=== PATIENT | female | born 1955 | race American Indian/Alaskan Native ===

== ENCOUNTER 2018-09-29 15:56 | Inpatient (IN) | payer BC ==
--- NOTE | 2018-09-29 16:09 | Emergency Department Report ---
Blank Doc - Documentation Documentation: This is a 62-year-old female that presents with chest pain and SOB. Also has cough and headache. This initial assessment/diagnostic orders/clinical plan/treatment(s) is/are subject to change based on patient's health status, clinical progression and re- assessment by fellow clinical providers in the ED. Further treatment and workup at subsequent clinical providers discretion. Patient/guardians urged not to elope from the ED as their condition may be serious if not clinically assessed and managed. Initial orders include: 1- Patient sent to MAIN ED for further evaluation and treatment 2- labs 3- EKG 4- CXR
[2018-09-29 16:49] LABS: Basophils % (Auto) 0.7 % (0.0-1.8); Eosinophils # (Auto) 0.1 K/mm3 (0.0-0.4); Eosinophils % (Auto) 0.7 % (0.0-4.3); Hematocrit 33.5 % (30.3-42.9); Hemoglobin 10.9 gm/dl (10.1-14.3); Lymphocytes # (Auto) 1.9 K/mm3 (1.2-5.4); Lymphocytes % (Auto) 26.9 % (13.4-35.0); Mean Corpuscular HGB Conc 33 % (30-34); Mean Corpuscular Volume 76 fl (79-97); Monocytes # (Auto) 0.5 K/mm3 (0.0-0.8); Monocytes % (Auto) 6.2 % (0.0-7.3); Platelet Count 358 K/mm3 (140-440); Red Blood Count 4.38 M/mm3 (3.65-5.03); Red Cell Distribution Width 13.8 % (13.2-15.2)
[2018-09-29 16:59] LABS: INR 0.87 (0.87-1.13)
[2018-09-29 17:00] LABS: Partial Thromboplastin Time 29.7 Sec. (24.2-36.6)
[2018-09-29 17:05] LABS: Alanine Aminotransferase 10 units/L (7-56); Albumin 4.1 g/dL (3.9-5); BUN/Creatinine Ratio 11; Blood Urea Nitrogen 8 mg/dL (7-17); Calcium 9.1 mg/dL (8.4-10.2); Hemolysis Index 9
--- NOTE | 2018-09-29 17:31 | Emergency Department Report ---
HPI - General Chief Complaint: Headache Time Seen by Provider: 09/29/18 16:10 - HPI HPI: Room 22 The patient is a 62-year-old female presenting with a chief complaint of dizziness and shortness of breath. The patient states yesterday she developed symptoms which include dizziness and weakness shortness of breath and a productive cough. Patient states her cough has been productive of brown sputum. The patient states yesterday she also developed a constant substernal chest pressure with her shortness of breath. Patient admits to nausea/vomiting and diaphoresis. Patient denies rhinorrhea. The patient states she's had tingling in both of her legs since yesterday as well. Patient admits to a fever of 102F at home. Location: [See above] Duration: [See above] Quality: [See above] Severity: [See above] Modifying factors: [see above] Context: [see above] Mode of transportation: [not driving] ED Past Medical Hx - Past Medical History Additional medical history: DVT, Pneumonia - Surgical History Additional Surgical History: tonsilectomy - Family History Family history: no significant - Social History Smoking Status: Never Smoker Substance Use Type: None (denies illicit drug use) - Medications Home Medications: Home Medications Medication Instructions Recorded Confirmed Last Taken Type Aspirin [Aspirin BABY CHEW TAB] 81 mg PO DAILY 09/29/18 09/29/18 09/29/18 History ED Review of Systems ROS: Stated complaint: COUGH/CHEST PAIN Other details as noted in HPI Constitutional: diaphoresis, fever Eyes: denies: eye pain ENT: denies: throat pain Respiratory: shortness of breath Cardiovascular: chest pain Endocrine: no symptoms reported Gastrointestinal: nausea, vomiting Genitourinary: denies: dysuria Musculoskeletal: myalgia Neurological: other (dizziness) Physical Exam - Physical Exam Vital Signs: Vital Signs 09/29/18 16:08 Temperature 98.4 F Pulse Rate 108 H Respiratory 16 Rate Blood Pressure 138/80 O2 Sat by Pulse 98 Oximetry Physical Exam: GENERAL: The patient is well-developed well-nourished female lying on stretcher not appearing to be in acute distress. [] HEENT: Normocephalic. Atraumatic. Extraocular motions are intact. Patient has moist mucous membranes. NECK: Supple. Trachea midline CHEST/LUNGS: Clear to auscultation. There is no respiratory distress noted. HEART/CARDIOVASCULAR: Regular. There is no tachycardia. There is no gallop rub or murmur. ABDOMEN: Abdomen is soft, nontender. Patient has normal bowel sounds. There is no abdominal distention. SKIN: There is no rash. There is no edema. There is no diaphoresis. NEURO: The patient is awake, alert, and orienCranial nerves II through XII MUSCULOSKELETAL: There is no evidence of acute injury. ED Course Vital Signs 09/29/18 16:08 Temperature 98.4 F Pulse Rate 108 H Respiratory 16 Rate Blood Pressure 138/80 O2 Sat by Pulse 98 Oximetry ED Medical Decision Making - Lab Data Result diagrams: 09/30/18 07:29 09/30/18 07:29 Laboratory Tests 09/29/18 09/29/18 09/29/18 16:33 16:33 16:33 WBC 7.2 RBC 4.38 Hgb 10.9 Hct 33.5 MCV 76 L MCH 25 L MCHC 33 RDW 13.8 Plt Count 358 Lymph % (Auto) 26.9 [place] % (Auto) 6.2 Eos % (Auto) 0.7 Baso % (Auto) 0.7 Lymph # 1.9 [place] # 0.5 Eos # 0.1 Baso # 0.0 Seg Neutrophils % 65.5 Seg Neutrophils # 4.7 PT 12.4 INR 0.87 APTT 29.7 D-Dimer Sodium 141 Potassium 3.7 Chloride 104.3 Carbon Dioxide 25 Anion Gap 15 BUN 8 Creatinine 0.7 Estimated GFR > 60 BUN/Creatinine Ratio 11 Glucose 85 Hemoglobin A1c Calcium 9.1 Total Bilirubin 0.20 AST 19 ALT 10 Alkaline Phosphatase 99 Troponin T < 0.010 Total Protein 8.0 Albumin 4.1 Albumin/Globulin Ratio 1.1 Triglycerides Cholesterol LDL Cholesterol Direct HDL Cholesterol Cholesterol/HDL Ratio 09/29/18 09/29/18 09/29/18 16:45 19:31 19:31 WBC RBC Hgb Hct MCV MCH MCHC RDW Plt Count Lymph % (Auto) [place] % (Auto) Eos % (Auto) Baso % (Auto) Lymph # [place] # Eos # Baso # Seg Neutrophils % Seg Neutrophils # PT INR APTT D-Dimer 388.83 H Sodium Potassium Chloride Carbon Dioxide Anion Gap BUN Creatinine Estimated GFR BUN/Creatinine Ratio Glucose Hemoglobin A1c 6.3 H Calcium Total Bilirubin AST ALT Alkaline Phosphatase Troponin T Total Protein Albumin Albumin/Globulin Ratio Triglycerides 90 Cholesterol 265 H LDL Cholesterol Direct 200 H HDL Cholesterol 69 H Cholesterol/HDL Ratio 3.84 09/29/18 09/30/18 09/30/18 19:39 07:29 07:29 WBC 7.4 RBC 4.59 Hgb 11.4 Hct 35.4 MCV 77 L MCH 25 L MCHC 32 RDW 14.1 Plt Count 341 Lymph % (Auto) 10.5 L [place] % (Auto) 1.6 Eos % (Auto) 0.1 Baso % (Auto) 0.4 Lymph # 0.8 L [place] # 0.1 Eos # 0.0 Baso # 0.0 Seg Neutrophils % 87.4 H Seg Neutrophils # 6.4 PT INR APTT D-Dimer Sodium 140 Potassium 4.1 Chloride 102.9 Carbon Dioxide 24 Anion Gap 17 BUN 10 Creatinine 0.8 Estimated GFR > 60 BUN/Creatinine Ratio 13 Glucose 151 H Hemoglobin A1c Calcium 9.2 Total Bilirubin AST ALT Alkaline Phosphatase Troponin T < 0.010 Total Protein Albumin Albumin/Globulin Ratio Triglycerides Cholesterol LDL Cholesterol Direct HDL Cholesterol Cholesterol/HDL Ratio - EKG Data -: EKG Interpreted by Nc EKG shows normal: sinus rhythm Rate: normal - EKG Data When compared to previous EKG there are: previous EKG unavailable Interpretation: other (no ischemic changes seen) - Radiology Data Radiology results: report reviewed (CT chest), image reviewed (CT chest) [place] [address] Cat Scan Report Signed Patient: MIRANDA RIOS MR#: [id number] 9 : 1955 Acct:[id number] Age/Sex: 62 / F ADM Date: 09/29/18 Loc: ED Attending Dr: Ordering Physician: CORRINA CORDOVA MD Date of Service: 09/29/18 Procedure(s): CT angio chest Accession Number(s): [id number] cc: CORRINA CORDOVA MD PROCEDURE: CT ANGIO CHEST TECHNIQUE: Following administration of IV contrast axial helical imaging was performed through the chest with maximum intensity projection images obtained. HISTORY: chest pain, shortness of breath COMPARISONS: Chest x-ray also performed today FINDINGS: There is no evidence of infiltrate, pneumothorax or pleural fluid collection. The trachea and bronchi are patent. The heart appears to be normal size. The thoracic aorta is normal caliber and without evidence of dissection.. There is no evidence of intrathoracic adenopathy. No filling defects are demonstrated within the pulmonary arteries to suggest the presence of pulmonary artery emboli. The visualized portion of the upper abdomen is unremarkable. The bony structures are unremarkable. IMPRESSION: 1. No evidence of an acute intrathoracic process. 2. No evidence of pulmonary artery emboli. This document is electronically signed by Parish Kothari MD., Sep 29 2018 08:07:46 PM ET Transcribed By: ED Dictated By: PARISH KOTHARI MD Electronically Authenticated By: PARISH KOTHARI MD Signed Date/Time: 09/29/182009 DD/ 08 TD/TT: 09/29/181929 - Differential Diagnosis bronchitis, pneumonia, ACS, PE, costochondritis Critical care attestation.: If time is entered above; I have spent that time in minutes in the direct care of this critically ill patient, excluding procedure time. ED Disposition Clinical Impression: Shortness of breath, Chest pressure Disposition: OP ADMIT IP TO THIS HOSP Is pt being admited?: Yes Does the pt Need Aspirin: Yes Condition: Fair
[2018-09-29] MEDS ORDERED: ZOFRAN IV ONE (17:42)
[2018-09-29] MEDS ORDERED: SUBLIMAZE IV ONE (17:42)
--- NOTE | 2018-09-29 17:46 | XRay Report ---
PROCEDURE: XR CHEST ROUTINE 2V TECHNIQUE: PA and lateral chest HISTORY: Chest Pain COMPARISONS: None FINDINGS: Trachea midline. Heart size normal. Mild atherosclerotic tortuosity aorta No pneumothorax. No effusion. No acute airspace disease No acute bony abnormality IMPRESSION: No acute pulmonary disease.. This document is electronically signed by John Perkins MD., Sep 29 2018 05:44:03 PM ET
--- NOTE | 2018-09-29 20:10 | Cat Scan Report ---
PROCEDURE: CT ANGIO CHEST TECHNIQUE: Following administration of IV contrast axial helical imaging was performed through the c hest with maximum intensity projection images obtained. HISTORY: chest pain, shortness of breath COMPARISONS: Chest x-ray also performed today FINDINGS: There is no evidence of infiltrate, pneumothorax or pleural fluid collection. The trachea and bronchi are patent. The heart appears to be normal size. The thoracic aorta is normal caliber and without evidence of dissection.. There is no evidence of intrathoracic adenopathy. No filling defects are demonstrated within the pulmonary arteries to suggest the presence of pulmonar y artery emboli. The visualized portion of the upper abdomen is unremarkable. The bony structures are unremarkable. IMPRESSION: 1. No evidence of an acute intrathoracic process. 2. No evidence of pulmonary artery emboli. This document is electronically signed by Regina Kothari MD., Sep 29 2018 08:07:46 PM ET
[2018-09-29] MEDS ORDERED: TYLENOL PO PRN (20:11)
[2018-09-29] MEDS ORDERED: MORPHINE IV PRN (20:11)
[2018-09-29] MEDS ORDERED: SODIUM CHLORIDE FLUSH SYRINGE 10 ML IV PRN ×2 (20:11)
[2018-09-29] MEDS ORDERED: ZOFRAN IV PRN (20:11)
[2018-09-29] MEDS ORDERED: NITROSTAT SL PRN (20:13)
[2018-09-29] MEDS ORDERED: APRESOLINE IV PRN (20:24)
--- NOTE | 2018-09-29 20:31 | History and Physical Report ---
<LINNEA ALEXANDER - Last Filed: 09/29/18 21:58> History of Present Illness Date of examination: 09/29/18 Date of admission: 09/29/2018 Chief complaint: Chest Pain and BLE tingling History of present illness: 62-year-old -German female with history of left lower extremity DVT ( approx 5yrs ago) currently takes aspirin 81 mg daily presents to [facility] ED with complaints of cough with brown sputum production, 10/10 chest pain accompanied with diaphoresis, nausea, and emesis 1 for the past day. Patient stated that she started feeling ill yesterday evening but felt too weak to come to the ED and decided to wait until this morning with hopes that she will feel better. Her pain continued throughout the night and so she decided to come in today. Patient states that she thought she might have had pneumonia since she's had in the past and also experienced chest pain and discolored sputum production when she had pneumonia. She describes her pain as unprovoked "pressing pain" which is relieved with pain medicine. She admits to dyspnea with activity, which is relieved by cessation of activity and rest. Also pt c/o intermittent bilateral lower extremity paresthesia. Admits diaphoresis, fever, chills, dyspnea, cough, brown sputum production and chest pain. Denies diarrhea, hemoptysis, or recent sick contact. Past History Past Medical History: DVT (left lower extremity, 5 years ago) Past Surgical History: No surgical history Social history: , lives with family Family history: no significant family history Medications and Allergies Allergies Allergy/AdvReac Type Severity Reaction Status Date / Time No Known Allergies Allergy Unverified 09/29/18 15:58 Home Medications Medication Instructions Recorded Confirmed Last Taken Type Aspirin [Aspirin BABY CHEW TAB] 81 mg PO DAILY 09/29/18 09/29/18 09/29/18 History AtorvaSTATin [Lipitor] 40 mg PO QHS #30 tablet 10/01/18 Unknown Rx Azithromycin [Zithromax TAB] 500 mg PO QDAY #3 tablet 10/01/18 Unknown Rx Ibuprofen [Ibuprofen 400] 400 mg PO TID PRN #20 tablet 10/01/18 Unknown Rx amLODIPine [Norvasc] 5 mg PO QDAY #30 tablet 10/01/18 Unknown Rx Review of Systems Constitutional: fever, chills, sweats, no weight loss, no weight gain, no night sweats, no anorexia, no fatigue Ears, nose, mouth and throat: no nasal congestion, no nasal discharge, no epistaxis, no sore throat, no vertigo Breasts: deferred Cardiovascular: chest pain, shortness of breath, no syncope, no lightheadedness Respiratory: cough, cough with sputum (Brown colored), shortness of breath, no hemoptysis, no congestion, no wheezing Gastrointestinal: no abdominal pain, no nausea, no vomiting, no constipation, no hematemesis Genitourinary Female: no dysuria, no urinary frequency, no urgency Menstruation: postmenopausal Rectal: no incontinence, no bleeding, no itching Musculoskeletal: leg numbness/tingling (bilateral), no neck stiffness, no neck pain Integumentary: no rash, no pruritis, no redness Neurological: numbness, tingling, no head injury, no transient paralysis, no weakness, no seizures Psychiatric: no anxiety, no memory loss, no change in sleep habits, no sleep disturbances Endocrine: no cold intolerance, no heat intolerance, no polydipsia, no polyuria, no nocturia, no excessive sweating Hematologic/Lymphatic: no easy bruising, no easy bleeding Allergic/Immunologic: no allergic rhinitis, no wheezing Exam - Physical Exam Narrative exam: Physical exam General appearance: Present: No acute distress, well nourished - EENT Eyes: Present: PERRL, EOM intact ENT: hearing intact, normal dentition - Neck Neck: Present: supple, normal ROM - Respiratory Respiratory effort: Non-labored Respiratory: Clear throughout - Cardiovascular Heart rate: 67 (bpm) Rhythm: regular Heart Sounds: Present: S1 & S2. Absent: rub, click - Extremities Extremities: no ischemia, pulses intact, abnormal (trace edema to right lower extremity) - Peripheral Assessment Peripheral Pulses: within normal limits - Abdominal General gastrointestinal: soft, non-tender, normal bowel sounds - Integumentary Integumentary: Present: warm, dry - Musculoskeletal Musculoskeletal: Able to move all extremities - Psychiatric Psychiatric: cooperative - Constitutional Vitals: Temp Pulse Resp BP Pulse Ox 98.9 F 82 16 160/91 100 09/29/18 20:12 09/29/18 20:12 09/29/18 20:12 09/29/18 20:12 09/29/18 20:12 Results - Labs CBC & Chem 7: 09/29/18 16:33 09/29/18 16:33 Labs: Laboratory Last Values WBC 7.2 K/mm3 (4.5-11.0) 09/29/18 16:33 RBC 4.38 M/mm3 (3.65-5.03) 09/29/18 16:33 Hgb 10.9 gm/dl (10.1-14.3) 09/29/18 16:33 Hct 33.5 % (30.3-42.9) 09/29/18 16:33 MCV 76 fl (79-97) L 09/29/18 16:33 MCH 25 pg (28-32) L 09/29/18 16:33 MCHC 33 % (30-34) 09/29/18 16:33 RDW 13.8 % (13.2-15.2) 09/29/18 16:33 Plt Count 358 K/mm3 (140-440) 09/29/18 16:33 Lymph % (Auto) 26.9 % (13.4-35.0) 09/29/18 16:33 [place] % (Auto) 6.2 % (0.0-7.3) 09/29/18 16:33 Eos % (Auto) 0.7 % (0.0-4.3) 09/29/18 16:33 Baso % (Auto) 0.7 % (0.0-1.8) 09/29/18 16:33 Lymph # 1.9 K/mm3 (1.2-5.4) 09/29/18 16:33 [place] # 0.5 K/mm3 (0.0-0.8) 09/29/18 16:33 Eos # 0.1 K/mm3 (0.0-0.4) 09/29/18 16:33 Baso # 0.0 K/mm3 (0.0-0.1) 09/29/18 16:33 Seg Neutrophils % 65.5 % (40.0-70.0) 09/29/18 16:33 Seg Neutrophils # 4.7 K/mm3 (1.8-7.7) 09/29/18 16:33 PT 12.4 Sec. (12.2-14.9) 09/29/18 16:33 INR 0.87 (0.87-1.13) 09/29/18 16:33 APTT 29.7 Sec. (24.2-36.6) 09/29/18 16:33 D-Dimer 388.83 ng/mlDDU (0-234) H 09/29/18 16:45 Sodium 141 mmol/L (137-145) 09/29/18 16:33 Potassium 3.7 mmol/L (3.6-5.0) 09/29/18 16:33 Chloride 104.3 mmol/L (98-107) 09/29/18 16:33 Carbon Dioxide 25 mmol/L (22-30) 09/29/18 16:33 Anion Gap 15 mmol/L 09/29/18 16:33 BUN 8 mg/dL (7-17) 09/29/18 16:33 Creatinine 0.7 mg/dL (0.7-1.2) 09/29/18 16:33 Estimated GFR > 60 ml/min 09/29/18 16:33 BUN/Creatinine Ratio 11 % 09/29/18 16:33 Glucose 85 mg/dL (65-100) 09/29/18 16:33 Calcium 9.1 mg/dL (8.4-10.2) 09/29/18 16:33 Total Bilirubin 0.20 mg/dL (0.1-1.2) 09/29/18 16:33 AST 19 units/L (5-40) 09/29/18 16:33 ALT 10 units/L (7-56) 09/29/18 16:33 Alkaline Phosphatase 99 units/L (35-129) 09/29/18 16:33 Troponin T < 0.010 ng/mL (0.00-0.029) 09/29/18 19:39 Total Protein 8.0 g/dL (6.3-8.2) 09/29/18 16:33 Albumin 4.1 g/dL (3.9-5) 09/29/18 16:33 Albumin/Globulin Ratio 1.1 % 09/29/18 16:33 - Imaging and Cardiology EKG: image reviewed (sinus rhythm at 87 bpm, prolonged WA interval) Chest x-ray: report reviewed, image reviewed (No acute pulmonary disease) CT scan - chest: report reviewed, image reviewed (No evidence of an acute intrathoracic process. No evidence of pulmonary artery emboli. ) Assessment and Plan Assessment and plan: 62-year-old -German female with history of left lower extremity DVT ( approx 5yrs ago) currently takes aspirin 81 mg daily presents to [facility] ED with complaints of cough with brown sputum production, 10/10 chest pain accompanied with diaphoresis, nausea, and emesis 1 for the past day. She admits to dyspnea with activity, which is relieved by cessation of activity and rest. Also pt c/o intermittent bilateral lower extremity paresthesia. Patient will be admitted under OBS to telemetry for further evaluation. Troponin negative 1, slight elevation in d-dimer at 388.83. Will order echocardiogram and consult cardiology. Given patient's history of DVT Doppler of bilateral lower extremity will be ordered. Acute chest pain Suspicion of ACS Bronchitis Hypertension HLD Prediabetes- hgbA1c 6.3 History of DVT History of insomnia Plan: Echo pending Repeat troponin- pending Bilateral lower extremity Doppler pending Monitor BP Start Norvasc 5 mg Start Lipitor 40 mg Start Azithromycin 500mg x3 days Prednisone 40mg daily Albuterol prn Temazepam qhs Pain management A.m. labs Outpatient f/u with PCP to monitor HgbA1c DVT PPX on Lovenox and SCDs Advance Directives: No VTE prophylaxis?: Chemical, Mechanical Plan of care discussed with patient/family: Yes <GARLAND ROMERO - Last Filed: 10/13/18 01:12> History of Present Illness Date of admission: 09/29/18 20:11 Medications and Allergies Active Meds: Active Medications Acetaminophen (Tylenol) 650 mg PO Q4H PRN PRN Reason: Pain MILD(1-3)/Fever >100.5/AVILA Albuterol (Proventil) 2.5 mg IH Q4HRT PRN PRN Reason: Shortness Of Breath Amlodipine Besylate (Norvasc) 5 mg PO QDAY GEORGE Aspirin (Baby Aspirin) 81 mg PO QDAY GEORGE Atorvastatin Calcium (Lipitor) 40 mg PO QHS GEORGE Azithromycin (Zithromax) 500 mg PO QDAY GEORGE Stop: 10/01/18 23:59 Docusate Sodium (Colace) 100 mg PO BID GEORGE Enoxaparin Sodium (Lovenox) 40 mg SUB-Q QDAY GEORGE Hydralazine HCl (Apresoline) 10 mg IV Q4H PRN PRN Reason: Blood Pressure Morphine Sulfate (Morphine) 2 mg IV Q4H PRN PRN Reason: Pain, Moderate (4-6) Stop: 09/30/18 23:59 Nitroglycerin (Nitrostat) 0.4 mg SL Q5M PRN PRN Reason: Chest Pain Ondansetron HCl (Zofran) 4 mg IV Q8H PRN PRN Reason: Nausea And Vomiting Prednisone (Deltasone) 40 mg PO QDAY GEORGE Sodium Chloride (Sodium Chloride Flush Syringe 10 Ml) 10 ml IV BID GEORGE Sodium Chloride (Sodium Chloride Flush Syringe 10 Ml) 10 ml IV PRN PRN PRN Reason: LINE FLUSH Temazepam (Restoril) 15 mg PO QHS GEORGE Tramadol HCl (Ultram) 50 mg PO Q6H PRN PRN Reason: Pain, Moderate (4-6) Exam - Constitutional Vitals: Temp Pulse Resp BP Pulse Ox 97.8 F 79 16 145/90 100 09/29/18 21:32 09/29/18 21:32 09/29/18 21:32 09/29/18 21:32 09/29/18 21:32 Results - Labs CBC & Chem 7: 09/30/18 07:29 09/30/18 07:29 Labs: Laboratory Last Values WBC 7.2 K/mm3 (4.5-11.0) 09/29/18 16:33 RBC 4.38 M/mm3 (3.65-5.03) 09/29/18 16:33 Hgb 10.9 gm/dl (10.1-14.3) 09/29/18 16:33 Hct 33.5 % (30.3-42.9) 09/29/18 16:33 MCV 76 fl (79-97) L 09/29/18 16:33 MCH 25 pg (28-32) L 09/29/18 16:33 MCHC 33 % (30-34) 09/29/18 16:33 RDW 13.8 % (13.2-15.2) 09/29/18 16:33 Plt Count 358 K/mm3 (140-440) 09/29/18 16:33 Lymph % (Auto) 26.9 % (13.4-35.0) 09/29/18 16:33 [place] % (Auto) 6.2 % (0.0-7.3) 09/29/18 16:33 Eos % (Auto) 0.7 % (0.0-4.3) 09/29/18 16:33 Baso % (Auto) 0.7 % (0.0-1.8) 09/29/18 16:33 Lymph # 1.9 K/mm3 (1.2-5.4) 09/29/18 16:33 [place] # 0.5 K/mm3 (0.0-0.8) 09/29/18 16:33 Eos # 0.1 K/mm3 (0.0-0.4) 09/29/18 16:33 Baso # 0.0 K/mm3 (0.0-0.1) 09/29/18 16:33 Seg Neutrophils % 65.5 % (40.0-70.0) 09/29/18 16:33 Seg Neutrophils # 4.7 K/mm3 (1.8-7.7) 09/29/18 16:33 PT 12.4 Sec. (12.2-14.9) 09/29/18 16:33 INR 0.87 (0.87-1.13) 09/29/18 16:33 APTT 29.7 Sec. (24.2-36.6) 09/29/18 16:33 D-Dimer 388.83 ng/mlDDU (0-234) H 09/29/18 16:45 Sodium 141 mmol/L (137-145) 09/29/18 16:33 Potassium 3.7 mmol/L (3.6-5.0) 09/29/18 16:33 Chloride 104.3 mmol/L (98-107) 09/29/18 16:33 Carbon Dioxide 25 mmol/L (22-30) 09/29/18 16:33 Anion Gap 15 mmol/L 09/29/18 16:33 BUN 8 mg/dL (7-17) 09/29/18 16:33 Creatinine 0.7 mg/dL (0.7-1.2) 09/29/18 16:33 Estimated GFR > 60 ml/min 09/29/18 16:33 BUN/Creatinine Ratio 11 % 09/29/18 16:33 Glucose 85 mg/dL (65-100) 09/29/18 16:33 Hemoglobin A1c 6.3 % (4-6) H 09/29/18 19:31 Calcium 9.1 mg/dL (8.4-10.2) 09/29/18 16:33 Total Bilirubin 0.20 mg/dL (0.1-1.2) 09/29/18 16:33 AST 19 units/L (5-40) 09/29/18 16:33 ALT 10 units/L (7-56) 09/29/18 16:33 Alkaline Phosphatase 99 units/L (35-129) 09/29/18 16:33 Troponin T < 0.010 ng/mL (0.00-0.029) 09/29/18 19:39 Total Protein 8.0 g/dL (6.3-8.2) 09/29/18 16:33 Albumin 4.1 g/dL (3.9-5) 09/29/18 16:33 Albumin/Globulin Ratio 1.1 % 09/29/18 16:33 Triglycerides 90 mg/dL (2-149) 09/29/18 19:31 Cholesterol 265 mg/dL (50-199) H 09/29/18 19:31 LDL Cholesterol Direct 200 mg/dL (50-130) H 09/29/18 19:31 HDL Cholesterol 69 mg/dL (40-59) H 09/29/18 19:31 Cholesterol/HDL Ratio 3.84 % 09/29/18 19:31 Assessment and Plan Assessment and plan: Patient seen and examined with CONSERVATION SPECIALIST. 62 year old woman with no medical problem comes to emergency room complaining of cough productive of brown yellowish phlegm, shortness of breath. Complains of chest discomfort in the anterior chest only with cough which she described as a pressing sensation. Symptoms are suggestive of acute bronchitis, less likely ACS. Agree with plan as stated above. Monitor elevated blood pressure, agree with Norvasc
[2018-09-29 20:48] LABS: Chol/HDL Ratio 3.84 %
[2018-09-29] MEDS ORDERED: PROVENTIL IH PRN (22:09)
[2018-09-29] MEDS ORDERED: DELTASONE PO ONE (22:23)
[2018-09-29] MEDS: LOVENOX SUB-Q SCH (22:35)
[2018-09-29] MEDS: NORVASC PO SCH (22:35)
[2018-09-29] MEDS: ZITHROMAX PO SCH (22:36)
[2018-09-29] MEDS: SODIUM CHLORIDE FLUSH SYRINGE 10 ML IV SCH (22:36)
[2018-09-29] MEDS: RESTORIL PO SCH (23:04)
[2018-09-29] MEDS: COLACE PO SCH (23:05)
[2018-09-30 07:25] LABS: BUN/Creatinine Ratio 13; Basophils % (Auto) 0.4 % (0.0-1.8); Blood Urea Nitrogen 10 mg/dL (7-17); Calcium 9.2 mg/dL (8.4-10.2); Eosinophils % (Auto) 0.1 % (0.0-4.3); Hematocrit 35.4 % (30.3-42.9); Hemoglobin 11.4 gm/dl (10.1-14.3); Hemolysis Index 0; Lymphocytes # (Auto) 0.8 K/mm3 (1.2-5.4); Lymphocytes % (Auto) 10.5 % (13.4-35.0); Mean Corpuscular HGB Conc 32 % (30-34); Mean Corpuscular Volume 77 fl (79-97); Monocytes # (Auto) 0.1 K/mm3 (0.0-0.8); Monocytes % (Auto) 1.6 % (0.0-7.3); Platelet Count 341 K/mm3 (140-440); Red Blood Count 4.59 M/mm3 (3.65-5.03); Red Cell Distribution Width 14.1 % (13.2-15.2)
--- NOTE | 2018-09-30 10:52 | Progress Note ---
Assessment and Plan Assessment and plan: Chest pain stress test today Aspirin daily Cardiology evaluation done Acute bronchitis started on Prednisone hyperlipidemia start Lipitor Full code status History Interval history: Chest pain Hospitalist Physical - Physical exam Narrative exam: Gen: Not in acute distress, lying in bed HEENT: Normocephalic, atraumatic Neck: supple, no JVD Heart: S1 and S2 reg, no murmurs, rubs or gallop Lungs: Clear to auscultation, no wheezing Abd: soft, non tender, non distended, normal BS Ext: No edema, no clubbing, no cyanosis, Neuro: AAO x 3, moves all ext - Constitutional Vitals: Temp Pulse Resp BP Pulse Ox 97.9 F 88 16 112/63 95 09/30/18 08:49 09/30/18 08:49 09/30/18 08:49 09/30/18 08:49 09/30/18 08:49 Results - Labs CBC & Chem 7: 09/30/18 07:29 09/30/18 07:29 Labs: Laboratory Last Values WBC 7.4 K/mm3 (4.5-11.0) 09/30/18 07:29 RBC 4.59 M/mm3 (3.65-5.03) 09/30/18 07:29 Hgb 11.4 gm/dl (10.1-14.3) 09/30/18 07:29 Hct 35.4 % (30.3-42.9) 09/30/18 07:29 MCV 77 fl (79-97) L 09/30/18 07:29 MCH 25 pg (28-32) L 09/30/18 07:29 MCHC 32 % (30-34) 09/30/18 07:29 RDW 14.1 % (13.2-15.2) 09/30/18 07:29 Plt Count 341 K/mm3 (140-440) 09/30/18 07:29 Lymph % (Auto) 10.5 % (13.4-35.0) L 09/30/18 07:29 Clark % (Auto) 1.6 % (0.0-7.3) 09/30/18 07:29 Eos % (Auto) 0.1 % (0.0-4.3) 09/30/18 07:29 Baso % (Auto) 0.4 % (0.0-1.8) 09/30/18 07:29 Lymph # 0.8 K/mm3 (1.2-5.4) L 09/30/18 07:29 Clark # 0.1 K/mm3 (0.0-0.8) 09/30/18 07:29 Eos # 0.0 K/mm3 (0.0-0.4) 09/30/18 07: Baso # 0.0 K/mm3 (0.0-0.1) 09/30/18 07:29 Seg Neutrophils % 87.4 % (40.0-70.0) H 09/30/18 07:29 Seg Neutrophils # 6.4 K/mm3 (1.8-7.7) 09/30/18 07:29 PT 12.4 Sec. (12.2-14.9) 09/29/18 16:33 INR 0.87 (0.87-1.13) 09/29/18 16:33 APTT 29.7 Sec. (24.2-36.6) 09/29/18 16:33 388.83 ng/mlDDU (0-234) H 09/29/18 16:45 Sodium 140 mmol/L (137-145) 09/30/18 07:29 Potassium 4.1 mmol/L (3.6-5.0) 09/30/18 07:29 Chloride 102.9 mmol/L (98-107) 09/30/18 07:29 Carbon Dioxide 24 mmol/L (22-30) 09/30/18 07:29 17 mmol/L 09/30/18 07:29 BUN 10 mg/dL (7-17) 09/30/18 07:29 0.8 mg/dL (0.7-1.2) 09/30/18 07:29 Estimated GFR > 60 ml/min 09/30/18 07:29 13 % 09/30/18 07:29 Glucose 151 mg/dL (65-100) H 09/30/18 07:29 6.3 % (4-6) H 09/29/18 19:31 Calcium 9.2 mg/dL (8.4-10.2) 09/30/18 07:29 0.20 mg/dL (0.1-1.2) 09/29/18 16:33 AST 19 units/L (5-40) 09/29/18 16:33 ALT 10 units/L (7-56) 09/29/18 16:33 99 units/L (35-129) 09/29/18 16:33 < 0.010 ng/mL (0.00-0.029) 09/29/18 19:39 8.0 g/dL (6.3-8.2) 09/29/18 16:33 4.1 g/dL (3.9-5) 09/29/18 16:33 1.1 % 09/29/18 16:33 Triglycerides 90 mg/dL (2-149) 09/29/18 19:31 Cholesterol 265 mg/dL (50-199) H 09/29/18 19:31 200 mg/dL (50-130) H 09/29/18 19:31 69 mg/dL (40-59) H 09/29/18 19:31 3.84 % 09/29/18 19:31 Active Medications - Current Medications Current Medications: Generic Name Dose Route Start Last Admin Trade Name Freq PRN Reason Stop Dose Admin Acetaminophen 650 mg 09/29/18 20:11 Tylenol PO Q4H PRN Pain MILD(1-3)/Fever >100.5/AVILA Albuterol 2.5 mg 09/29/18 22:09 Proventil IH Q4HRT PRN Shortness Of Breath Amlodipine Besylate 5 mg 09/29/18 22:00 09/29/18 22:35 Norvasc PO 5 mg QDAY GEORGE Administration Aspirin 81 mg 09/30/18 10:00 Baby Aspirin PO QDAY GEORGE Atorvastatin Calcium 40 mg 09/29/18 22:00 09/29/18 22:36 Lipitor PO 40 mg QHS GEORGE Administration Azithromycin 500 mg 09/29/18 22:00 09/29/18 22:36 Zithromax PO 10/01/18 23:59 500 mg QDAY GEORGE Administration Docusate Sodium 100 mg 09/29/18 22:00 09/29/18 23:05 Colace PO Not Given BID GEORGE Enoxaparin Sodium 40 mg 09/29/18 21:00 09/29/18 22:35 Lovenox SUB-Q 40 mg QDAY GEORGE Administration Hydralazine HCl 10 mg 09/29/18 20:24 Apresoline IV Q4H PRN Blood Pressure Morphine Sulfate 2 mg 09/29/18 20:11 Morphine IV 09/30/18 23:59 Q4H PRN Pain, Moderate (4-6) Nitroglycerin 0.4 mg 09/29/18 20:13 Nitrostat SL Q5M PRN Chest Pain Ondansetron HCl 4 mg 09/29/18 20:11 Zofran IV Q8H PRN Nausea And Vomiting Prednisone 40 mg 09/30/18 10:00 Deltasone PO QDAY GEORGE Sodium Chloride 10 ml 09/29/18 22:00 09/29/18 22:36 Sodium Chloride Flush Syringe 10 Ml IV Not Given BID GEORGE Sodium Chloride 10 ml 09/29/18 20:11 Sodium Chloride Flush Syringe 10 Ml IV PRN PRN LINE FLUSH Temazepam 15 mg 09/29/18 22:00 09/29/18 23:04 Restoril PO 15 mg QHS GEORGE Administration Tramadol HCl 50 mg 09/29/18 20:13 Ultram PO Q6H PRN Pain, Moderate (4-6)
--- NOTE | 2018-09-30 11:09 | Consultation ---
History of Present Illness Consult date: 09/30/18 Consult reason: chest pain History of present illness: Patient is a 62 y/o female with a past medical history of an unprovoked left lower extremity DVT five years ago (anticoagulated with warfarin, now on ASA) and pneumonia who presented to the ED with a productive cough and chest pain x1 week. She reports that the chest pain occurs throughout her upper chest and is worse with coughing, movement and palpation. She rated is as 10/10. She also endorses a cough productive of thick, yellow sputum and describes her symptoms as similar to what she experienced when she last had pneumonia five y/a. A CTA was negative for PE and a CXR showed NAF. Troponins were negative x2, and EKG showed SR with no ST elevation. Past History Past Medical History: DVT (left lower extremity, 5 years ago) Past Surgical History: No surgical history Social history: , lives with family Family history: hypertension, other (mother and father had "heart problems.") Medications and Allergies Allergies Allergy/AdvReac Type Severity Reaction Status Date / Time No Known Allergies Allergy Unverified 09/29/18 15:58 Home Medications Medication Instructions Recorded Confirmed Last Taken Type Aspirin [Aspirin BABY CHEW TAB] 81 mg PO DAILY 09/29/18 09/29/18 09/29/18 History Active Meds: Active Medications Acetaminophen (Tylenol) 650 mg PO Q4H PRN PRN Reason: Pain MILD(1-3)/Fever >100.5/AVILA Albuterol (Proventil) 2.5 mg IH Q4HRT PRN PRN Reason: Shortness Of Breath Amlodipine Besylate (Norvasc) 5 mg PO QDAY [facility] Last Admin: 09/29/18 22:35 Dose: 5 mg Documented by: Aspirin (Baby Aspirin) 81 mg PO QDAY [facility] Atorvastatin Calcium (Lipitor) 40 mg PO QHS [facility] Last Admin: 09/29/18 22:36 Dose: 40 mg Documented by: Azithromycin (Zithromax) 500 mg PO QDAY [facility] Stop: 10/01/18 23:59 Last Admin: 09/29/18 22:36 Dose: 500 mg Documented by: Docusate Sodium (Colace) 100 mg PO BID [facility] Last Admin: 09/29/18 23:05 Dose: Not Given Documented by: Enoxaparin Sodium (Lovenox) 40 mg SUB-Q QDAY [facility] Last Admin: 09/29/18 22:35 Dose: 40 mg Documented by: Hydralazine HCl (Apresoline) 10 mg IV Q4H PRN PRN Reason: Blood Pressure Morphine Sulfate (Morphine) 2 mg IV Q4H PRN PRN Reason: Pain, Moderate (4-6) Stop: 09/30/18 23:59 Nitroglycerin (Nitrostat) 0.4 mg SL Q5M PRN PRN Reason: Chest Pain Ondansetron HCl (Zofran) 4 mg IV Q8H PRN PRN Reason: Nausea And Vomiting Prednisone (Deltasone) 40 mg PO QDAY [facility] Sodium Chloride (Sodium Chloride Flush Syringe 10 Ml) 10 ml IV BID [facility] Last Admin: 09/29/18 22:36 Dose: Not Given Documented by: Sodium Chloride (Sodium Chloride Flush Syringe 10 Ml) 10 ml IV PRN PRN PRN Reason: LINE FLUSH Temazepam (Restoril) 15 mg PO QHS [facility] Last Admin: 09/29/18 23:04 Dose: 15 mg Documented by: Tramadol HCl (Ultram) 50 mg PO Q6H PRN PRN Reason: Pain, Moderate (4-6) Review of Systems Cardiovascular: chest pain, shortness of breath Physical Examination Last Vital Signs Temp 97.9 F 09/30/18 08:49 Pulse 88 09/30/18 08:49 Resp 16 09/30/18 08:49 BP 112/63 09/30/18 08:49 Pulse Ox 95 09/30/18 08:49 General appearance: no acute distress Cardiac: Positive: Reg Rate and Rhythm Lungs: Positive: Normal Exam Skin: Positive: Clear Extremities: Present: normal Results 09/30/18 07:29 09/30/18 07:29 Cardiac Enzymes 09/29/18 Range/Units 16:33 AST 19 (5-40) units/L Coagulation 09/29/18 Range/Units 16:33 PT 12.4 (12.2-14.9) Sec. INR 0.87 (0.87-1.13) APTT 29.7 (24.2-36.6) Sec. Lipids 09/29/18 Range/Units 19:31 Triglycerides 90 (2-149) mg/dL Cholesterol 265 H (50-199) mg/dL HDL Cholesterol 69 H (40-59) mg/dL Cholesterol/HDL Ratio 3.84 % CBC 09/29/18 09/30/18 Range/Units 16:33 07:29 WBC 7.2 7.4 (4.5-11.0) K/mm3 RBC 4.38 4.59 (3.65-5.03) M/mm3 Hgb 10.9 11.4 (10.1-14.3) gm/dl Hct 33.5 35.4 (30.3-42.9) % Plt Count 358 341 (140-440) K/mm3 Lymph # 1.9 0.8 L (1.2-5.4) K/mm3 Emmet # 0.5 0.1 (0.0-0.8) K/mm3 Eos # 0.1 0.0 (0.0-0.4) K/mm3 Baso # 0.0 0.0 (0.0-0.1) K/mm3 Comprehensive Metabolic Panel 09/29/18 09/30/18 Range/Units 16:33 07:29 Sodium 141 140 (137-145) mmol/L Potassium 3.7 4.1 (3.6-5.0) mmol/L Chloride 104.3 102.9 (98-107) mmol/L Carbon Dioxide 25 24 (22-30) mmol/L BUN 8 10 (7-17) mg/dL Creatinine 0.7 0.8 (0.7-1.2) mg/dL Glucose 85 151 H (65-100) mg/dL Calcium 9.1 9.2 (8.4-10.2) mg/dL AST 19 (5-40) units/L ALT 10 (7-56) units/L Alkaline Phosphatase 99 (35-129) units/L Total Protein 8.0 (6.3-8.2) g/dL Albumin 4.1 (3.9-5) g/dL - Imaging and Cardiology EKG: report reviewed - EKG Interpretation EKG shows: sinus rhythm EKG interpretations - Telemetry EKG Rhythm: Sinus Rhythm Assessment and Plan Patient is a 62 y/o female who presented to the ED with atypical chest pain. She has no known cardiac history. We will obtain an echocardiogram and perform a Lexiscan stress test. Further recommendations pending results. Patient was seen in conjunction with Dr. Darnell Ortiz, who agrees with assessment and plan. - Patient Problems (1) Atypical chest pain Current Visit: Yes Status: Acute (2) Shortness of breath Current Visit: Yes Status: Acute (3) Productive cough Current Visit: Yes Status: Acute (4) DVT (deep venous thrombosis) Current Visit: No Status: Resolved
[2018-09-30] MEDS ORDERED: LEXISCAN IV ONE ×2 (11:28→12:00)
[2018-09-30] MEDS: DELTASONE PO SCH (13:59)
[2018-09-30] MEDS: ZITHROMAX PO SCH (14:00)
[2018-09-30] MEDS: BABY ASPIRIN PO SCH (14:00)
[2018-09-30] MEDS: NORVASC PO SCH (14:00)
[2018-09-30] MEDS: LOVENOX SUB-Q SCH (14:00)
[2018-09-30] MEDS: SODIUM CHLORIDE FLUSH SYRINGE 10 ML IV SCH ×2 (14:01→21:42)
[2018-09-30] MEDS: COLACE PO SCH ×2 (14:03→21:42)
[2018-09-30] MEDS: ULTRAM PO PRN ×2 (14:15→21:41)
[2018-09-30] MEDS: NITRO-BID 2% TP SCH (18:19)
[2018-09-30] MEDS: RESTORIL PO SCH (21:41)
[2018-09-30] MEDS ORDERED: RESTORIL PO SCH (22:00)
[2018-10-01 04:58] VITALS: BP 113/55
[2018-10-01] MEDS: NITRO-BID 2% TP SCH (07:04)
[2018-10-01] MEDS: LOVENOX SUB-Q SCH (10:30)
[2018-10-01] MEDS: NORVASC PO SCH (10:30)
[2018-10-01] MEDS: BABY ASPIRIN PO SCH (10:30)
[2018-10-01] MEDS: COLACE PO SCH (10:30)
[2018-10-01] MEDS: DELTASONE PO SCH (10:30)
[2018-10-01] MEDS: ZITHROMAX PO SCH (10:30)
[2018-10-01] MEDS: SODIUM CHLORIDE FLUSH SYRINGE 10 ML IV SCH (10:31)
--- NOTE | 2018-10-01 12:51 | Progress Note ---
Assessment and Plan Patient stable from a cardiac standpoint. Stress test and echo not indicative of cardiac etiology of chest pain. Patient in sinus rhythm and BPs are WNL. Will sign off for now. Patient has been seen in conjunction with Dr. Darnell Ortiz, who agrees with assessment and plan. - Patient Problems (1) Atypical chest pain Current Visit: Yes Status: Acute (2) Shortness of breath Current Visit: Yes Status: Acute (3) Productive cough Current Visit: Yes Status: Acute Subjective Date of service: 10/01/18 Interval history: Patient lying in bed in NAD. Reports that pain is greatly improved. Stress test on 09/30/18 negative. Echo on 09/30/18 found EF of 45-50 percent. Objective Vital Signs Temp Pulse Resp BP Pulse Ox 10/01/18 04:39 98 H 10/01/18 04:05 98.0 F 84 18 113/55 96 09/30/18 23:40 98.0 F 104 H 18 92/46 95 09/30/18 19:43 98.0 F 92 H 18 126/72 96 09/30/18 15:53 98.0 F 111 H 18 118/72 97 - Physical Examination General: No Apparent Distress HEENT: Positive: PERRL Neck: Positive: neck supple Cardiac: Positive: Reg Rate and Rhythm Lungs: Positive: clear to auscultation Neuro: Positive: Grossly Intact Abdomen: Positive: Unremarkable Skin: Positive: Clear Musculoskeletal: Normal Range of Motion Extremities: Present: normal - Imaging and Cardiology EKG: report reviewed Echo: report reviewed (09/30/18: EF of 45-50 percent. Global LV systolic function on low end of normal. )
--- NOTE | 2018-10-01 14:05 | Discharge Summary ---
Providers - Providers Date of Admission: 09/30/18 17:37 Date of discharge: 10/01/18 Attending physician: DENICE BLANCHARD 09/29/18 20:11 Consult to Cardiology [CONS] Routine Consulting Provider: ISAIAH CHIU Reason For Exam: acute chest pain Primary care physician: TIARRA SQUIRES Hospitalization Condition: Fair Hospital course: Patient is 62 yo presented with chest pain, cough, vomiting. She was seen and examined in ED. Initial Troponin was normal. She was given Aspirin and admitted to rule out acute coronary syndrome. Cardiology evaluation was done by [facility]. Stress test done following day was normal. She was then discharged home. Chest pain due to acute bronchitis. Total time spent on discharge, 31 mins Disposition: DC- TO HOME OR SELFCARE - Discharge Diagnoses (1) Acute bronchitis Status: Acute (2) GERD (gastroesophageal reflux disease) Status: Acute (3) Atypical chest pain Status: Acute (4) Productive cough Status: Acute (5) Hypertension Status: Acute (6) Hyperlipidemia Status: Acute Core Measure Documentation - Palliative Care Palliative Care/ Comfort Measures: Not Applicable - Core Measures Any of the following diagnoses?: none Exam - Constitutional Vitals: Temp Pulse Resp BP Pulse Ox 98.0 F 98 H 18 113/55 96 10/01/18 04:05 10/01/18 04:39 10/01/18 04:05 10/01/18 04:05 10/01/18 04:05 Plan Activity: no restrictions Diet: low fat, low cholesterol, low salt Additional Instructions: 1.Follow up with Dr. Squires in 1 week. Follow up with: TIARRA SQUIRES MD [Primary Care Provider] - 7 Days Prescriptions: Ibuprofen [Ibuprofen 400] 400 mg PO TID PRN #20 tablet PRN Reason: Pain , Severe (7-10) AtorvaSTATin [Lipitor] 40 mg PO QHS #30 tablet amLODIPine [Norvasc] 5 mg PO QDAY #30 tablet Azithromycin [Zithromax TAB] 500 mg PO QDAY #3 tablet
--- NOTE | 2018-10-02 00:39 | Treadmill Report ---
NUCLEAR STRESS TEST PROTOCOL: The patient was brought to the stress lab in a postoperative state, given 10 mCi of technetium 99m at rest. The patient underwent rest imaging. The patient underwent Lexiscan stress test. At peak stress, the patient was given 26 mCi of technetium 99m. Shortly thereafter, the patient underwent stress imaging. Raw imaging reveals mild GI artifact. No significant motion artifact. SPECT imaging examined carefully in horizontal long axis, vertical long axis, short axis views. There is normal homogenous uptake of radioisotope in all reported segments. No evidence of a significant fixed or reversible perfusion defects suggestive of prior infarction or ischemia. Gated wall motion reveals normal systolic thickening with a calculated ejection fraction of 50%. No TID. CONCLUSIONS: 1. Normal myocardial perfusion scan without evidence of significant ischemia or prior infarction. 2. Normal left ventricular systolic performance without evidence of transient ischemic dilatation or stress-induced segmental wall motion abnormalities. 3. Normal Lexiscan stress test without evidence of diagnostic ST changes; arrhythmias or chest pain during stress or recovery. [facility]# [id number] MARTIN/HOMERO
== END 2018-10-01 16:56 | disposition home or self-care (01) | DRG 313 ==
LOC: ED 15:56 → 4A 20:11 → OBSVTOIN 09-30 17:37
PROVIDERS: ADMIT Internal Medicine; ATTEND Internal Medicine
DX: R07.89 Other chest pain (principal); J20.9 Acute bronchitis, unspecified; E78.5 Hyperlipidemia, unspecified; Z90.89 Acquired absence of other organs; Z86.718 Personal history of other venous thrombosis and embolism; Z79.82 Long term (current) use of aspirin; Z82.49 Family history of ischemic heart disease and other diseases of the circulatory system
CPT/HCPCS: 36415; 71046; 71275; 78452; 80048; 80053; 80061; 83036; 84484; 85025; 85379; 85610; 85730; 93005; 93010; 93017; 93306; G0378; A9270-GY; A9502; J1650; J2270; J2405; J2785; J3010; J7512; Q9967

== ENCOUNTER 2020-07-07 13:11 | Emergency (ER) | payer SELFPAY ==
[2020-07-07 13:32] VITALS: BP 141/76
--- NOTE | 2020-07-07 14:40 | Emergency Department Report ---
Chief Complaint: Skin/Abscess/Foreign Body Stated Complaint: RT SIDE UNDER BREAST PAIN Time Seen by Provider: 07/07/20 13:36 - HPI History of Present Illness: Patient is a 64-year-old female presents emergency room complaints of a right breast nodule that she noticed a month ago. She states that it causes her pain. She denies any skin changes or nipple drainage. She states that she has an upcoming appointment with a breast surgeon on 07/14/2020. Vitals are stable [employer]cycle [employer] Samantha NEFF, there is a 3 cm firm nodule present to the lateral surface of the right breast, no nipple discharge, no erythema, no increased warmth, no fluctuance, no induration, no peau d'orange Examination is consistent with a right breast nodule No signs of infection or inflammatory changes visualized Patient has an upcoming appointment with her breast surgeon next week Discussed the importance of follow-up with patient, patient verbalized understanding Discussed return precautions Medical screen examination performed and there is no threat to life or limb at this time - Exam Vital Signs: Vital Signs 07/07/20 13:30 Temperature 98.1 F Pulse Rate 93 H Respiratory 18 Rate Blood Pressure 141/76 O2 Sat by Pulse 100 Oximetry MSE screening note: Focused history and physical exam performed. Due to findings the following was ordered: ED Disposition for MSE Disposition: Z- MED SCREENING EXAM-LEFT Condition: Stable Referrals: PRIMARY CARE, [Primary Care Provider] - 3-5 Days
== END 2020-07-07 14:52 | disposition left against medical advice (07) ==
LOC: ED 13:11
DX: N64.4 Mastodynia (principal); Z53.21 Procedure and treatment not carried out due to patient leaving prior to being seen by health care provider

== ENCOUNTER 2020-07-15 08:06 | Outpatient (CLI) | payer BC ==
--- NOTE | 2020-07-15 10:13 | Mammography Report ---
DIGITAL DIAGNOSTIC MAMMOGRAM WITH CAD CONVENTIONAL, 07/15/2020 CLINICAL INFORMATION / INDICATION: Postclip mammogram following right breast ultrasound-guided biops y of a mass in the upper outer quadrant as well as a right axillary lymph node. TECHNIQUE: Digital right mammographic imaging was performed. This examination was interpreted with the benefit of Computer-aided Detection analysis. COMPARISON: Prior mammogram 06/07/2020 FINDINGS: Breast Density: There are scattered areas of fibroglandular density. Postbiopsy mammogram reveals a biopsy clip appropriately positioned within a mass in the posterior up per outer quadrant of the right breast. The mass appears increased in size compared with prior mammog khushi 1 month prior, currently measuring up to 4.5 cm, previously 3.7 cm. The right axillary lymphadeno avery is only partially visualized, and the biopsy clip within an axillary lymph node is unable to be visualized mammographically. IMPRESSION: 1. Appropriately positioned biopsy clip within a right breast mass. A biopsy clip within an axillary lymph node is unable to be visualized mammographically. Follow up recommendation: No recall. Post biopsy imaging. A "normal" or negative report should not discourage follow up or biopsy of a clinically significant f inding. A written summary of these findings will be mailed to the patient. The patient will be entered into a mammography reporting system which will generate a reminder letter for the patient's next appointmen t at the appropriate interval. According to the [employer], yearly mammograms are recommended starting at age 40 and continuing as long as a woman is in good health. Breast MRI is recommended for women with an davide roximately 20-25% or greater lifetime risk of breast cancer, including women with a strong family his tory of breast or ovarian cancer and women who have been treated for Hodgkin's disease. Signer Name: Yaneli Doyle MD Signed: 07/15/2020 10:08 AM Workstation Name: [id number]
== END 2020-07-15 08:07 | disposition home or self-care (01) ==
LOC: SPVWC 08:06
PROVIDERS: ATTEND Surgery
DX: N63.11 Unspecified lump in the right breast, upper outer quadrant (principal)

== ENCOUNTER 2020-07-15 12:03 | Outpatient (CLI) | payer BC | END 2020-07-15 12:04 | disposition home or self-care (01) | LOC: LABHHL 12:03 | PROVIDERS: ATTEND Surgery | DX: N63.11 Unspecified lump in the right breast, upper outer quadrant (principal) | CPT/HCPCS: 88305 ==

== ENCOUNTER 2020-08-09 09:40 | Outpatient (CLI) | payer BC ==
--- NOTE | 2020-08-09 16:54 | Magnetic Resonance Report ---
BILATERAL BREAST MRI WITH AND WITHOUT CONTRAST CLINICAL INFORMATION/INDICATION: Recent diagnosis of right breast carcinoma and right axillary apollo metastases TECHNICAL: Coronal STIR, axial T1 and T2-weighted fat sat images were obtained precontrast. 15 cc cla riscan contrast was injected intravenously and serial axial T1 weighted images with fat saturation we re obtained. 3-D MIP projections, kinetic analysis and subtraction imaging was utilized to evaluate. A dedicated 8-channel breast coil was used for image acquisition. COMPARISON: Recent mammogram 06/07/2020 and 07/15/2020 FINDINGS: Breast Density: There are scattered areas of fibroglandular density. Background Parenchymal Enhancement: Mild Right breast: There is a very large lobulated heterogeneously enhancing mass occupying the upper oute r quadrant of the right breast. The mass measures approximately 7.8 cm x 4.6 cm. There is large area of central necrosis present. The mass is involving the lateral posterior aspect of the dermis. There is diffuse skin thickening throughout the remainder of the breast but no additional areas of malignan t dermal involvement. The mass extends to within 15 mm of the nipple. Additionally there is mildly enhancing ill-defined ma ss in the posterior central right breast with involvement of the pectoralis muscle. The lack of signi ficant enhancement is atypical considering the marked enhancement of the carcinoma throughout the rem ainder of the upper outer quadrant. However, this could represent additional site of necrotic tumor, but could also represent tenting of the pectoralis muscle due to close proximity of known large tumor and bulky axillary adenopathy.. This area is also extremely close to multiple markedly enlarged righ t axillary lymph nodes. The largest lymph node is 3 cm in diameter and appears to contain a biopsy cl ip. Many other bulky right axillary lymph nodes are noted with similar size. The appearance is consis tent with bulky metastatic axillary adenopathy. Left breast: No mass, suspicious focus of enhancement or lymphadenopathy. Additional findings: None. IMPRESSION: 1. Extremely large biopsy proven carcinoma occupying the majority of the upper outer quadrant of the right breast. There is significant central necrosis within the carcinoma as well as skin involvement laterally. The mass comes within 15 mm of the nipple. Additionally there is bulky metastatic right ax illary adenopathy. 2 . There is minimally enhancing ill-defined masslike density along the right pectoralis muscle measu ring approximately 2 cm. Given the lack of significant enhancement, this may just represent some tent ing of the pectoralis muscle given the close proximity to the large carcinoma and bulky axillary kishan opathy. However, pectoralis muscle invasion involvement is not completely excluded. 3. Normal MRI of the left breast. Follow up recommendation: Surgical consultation with Dr. Gutierres is ongoing. BI-RADS Category 6: Known Biopsy-Proven Malignancy. Signer Name: Scarlett Pereira MD Signed: 08/09/2020 4:50 PM Workstation Name: [id number]
== END 2020-08-09 09:41 | disposition home or self-care (01) ==
LOC: SPVIMAG 09:40
PROVIDERS: ATTEND Surgery
DX: C50.411 Malignant neoplasm of upper-outer quadrant of right female breast (principal); N63.11 Unspecified lump in the right breast, upper outer quadrant; R59.0 Localized enlarged lymph nodes
CPT/HCPCS: A9575; C8908; 77049

== ENCOUNTER 2020-09-08 08:33 | Outpatient (CLI) | payer BC ==
[2020-09-08 10:09] LABS: Blood Urea Nitrogen 7 mg/dL (7-17)
--- NOTE | 2020-09-08 12:04 | Cat Scan Report ---
CT CHEST, ABDOMEN AND PELVIS WITH CONTRAST HISTORY: Right breast cancer. COMPARISON: None TECHNIQUE: Routine chest, abdominal and pelvic CT exam performed following intravenous contrast admin istration.. All CT scans at this location are performed using CT dose reduction for ALARA by means of automated exposure control. FINDINGS: CT CHEST: Lungs: There is a 7 mm nodule in the lateral left lower lobe. There is a 4 mm nodule in the anterior right lower lobe. Trachea and Bronchi: No significant abnormality. Breast: There is a large mass in the right breast with additional multiple nodules in the right breas ts likely indicating intramammary adenopathy. Heart and Pericardium: No significant abnormality. Vasculature: No significant abnormality. Lymphatics: There are multiple significantly enlarged right axillary lymph nodes Jarret over 2 cm. T here is no additional appreciable intrathoracic adenopathy. CT ABDOMEN: Liver: There are multiple heterogeneous hypoattenuating liver masses, with the largest measuring 3.9 x 3.4 cm and the left hepatic lobe, consistent with hepatic metastatic disease. Biliary: No significant abnormality. Spleen: No significant abnormality. Unenlarged. Pancreas: No significant abnormality. Adrenals: No significant abnormality. Kidneys: Bilateral simple renal cysts without acute abnormality. Lymphatics: No lymphadenopathy. Vasculature: No significant abnormality. Bowel/Peritoneum: No significant abnormality. No free air. No free fluid. Normal appendix. CT PELVIC: : No significant abnormality. Lymphatics: No lymphadenopathy. Osseous Structures: No aggressive appearing osseous lesions. Additional Findings: None IMPRESSION: 1. Primary right breast mass with severe right axillary metastatic adenopathy. 2. Multiple hepatic metastatic lesions. 3. Small pulmonary nodules measuring up to 7 mm as above are indeterminate. Close follow-up on subs uent surveillance exam is recommended. 4. No appreciable osseous metastatic disease. Signer Name: Carlos German MD Signed: 09/08/2020 11:33 AM Workstation Name: [employer]
--- NOTE | 2020-09-08 12:30 | Nuclear Medicine Report ---
NUCLEAR MEDICINE BONE SCAN, WHOLE BODY INDICATION: C50.411. Staging of right breast cancer TECHNIQUE: 26 mCi of Tc-99m MDP were injected IV. Whole body images were obtained. COMPARISON: CT chest abdomen and pelvis performed the same day. FINDINGS: Skeletal Structures: Fairly symmetric, likely degenerative uptake is present involving the shoulders , sternoclavicular joints, lumbar spine, hips and right knee. Skeletal Lesions: None. Soft Tissues: There is mild diffuse uptake throughout the right breast and axillary soft tissues whic h correlates with the right breast mass and extensive right axillary adenopathy.. Kidneys: Normal, symmetric activity. Additional Findings: None. IMPRESSION: No evidence for osseous metastasis.. Signer Name: Thomas Emanuel Jr, MD Signed: 09/08/2020 12:12 PM Workstation Name: [id number]
== END 2020-09-08 08:34 | disposition home or self-care (01) ==
LOC: NM 08:33
PROVIDERS: ATTEND Internal Medicine Hematology
DX: C50.411 Malignant neoplasm of upper-outer quadrant of right female breast (principal); C78.7 Secondary malignant neoplasm of liver and intrahepatic bile duct; R91.1 Solitary pulmonary nodule; N63.10 Unspecified lump in the right breast, unspecified quadrant; R59.0 Localized enlarged lymph nodes
CPT/HCPCS: 36415; 71260; 74177; 78306; 82565; 84520; A9503; Q9967

== ENCOUNTER 2020-12-01 14:36 | Outpatient (CLI) | payer BC, MEDICARE ==
--- NOTE | 2020-12-01 15:32 | Mammography Report ---
DIGITAL DIAGNOSTIC MAMMOGRAM WITH CAD WITH TOMOSYNTHESIS, 12/01/2020 CLINICAL INFORMATION / INDICATION: PERSONAL HX OF BREAST CA Z85.3 TECHNIQUE: Digital right mammographic imaging was performed. This examination was interpreted with the benefit of Computer-aided Detection analysis. COMPARISON: Prior mammograms including 06/07/2020, 07/05/2020 and recent breast MRI, 08/09/2020 FINDINGS: Breast Density: There are scattered areas of fibroglandular density. Previously noted carcinoma throughout the upper outer quadrant of the right breast persists but does appear to be smaller compared with prior mammogram of 06/07/2020. There is less masslike effect in the region of the known carcinoma. Exact measurements are difficult. A biopsy clip is present within the central aspect of the known malignancy. Additionally, previously noted bulky axillary metastatic adenopathy on the right is significantly dec reased in prominence. IMPRESSION: Biopsy-proven right breast carcinoma and axillary adenopathy both appear significantly im proved compared with the prior mammogram of 06/07/2020. Follow up recommendation: Continued surgical consultation with Dr. Gutierres. BI-RADS Category 6: Known Biopsy-Proven Malignancy. A "normal" or negative report should not discourage follow up or biopsy of a clinically significant f inding. A written summary of these findings will be mailed to the patient. The patient will be entered into a mammography reporting system which will generate a reminder letter for the patient's next appointmen t at the appropriate interval. According to the [employer], yearly mammograms are recommended starting at age 40 and continuing as long as a woman is in good health. Breast MRI is recommended for women with an davide roximately 20-25% or greater lifetime risk of breast cancer, including women with a strong family his tory of breast or ovarian cancer and women who have been treated for Hodgkin's disease. Signer Name: Scarlett Pereira MD Signed: 12/01/2020 3:28 PM Workstation Name: [id number]
== END 2020-12-01 14:37 | disposition home or self-care (01) ==
LOC: SPVWC 14:36
PROVIDERS: ATTEND Surgery
DX: C50.811 Malignant neoplasm of overlapping sites of right female breast (principal); Z85.3 Personal history of malignant neoplasm of breast
CPT/HCPCS: 77065; G0279

== ENCOUNTER 2020-12-19 10:45 | Outpatient (CLI) | payer MEDICARE ==
[2020-12-19 12:01] LABS: Blood Urea Nitrogen 11 mg/dL (7-17)
--- NOTE | 2020-12-19 14:05 | Cat Scan Report ---
CT CHEST, ABDOMEN, AND PELVIS WITH CONTRAST INDICATION / CLINICAL INFORMATION: MALIGNANT NEOPLASM OF UPPER OUTER QUADRANT OMNI 300 100 ML. TECHNIQUE: Axial CT images were obtained through the chest, abdomen, and pelvis after IV contrast. Al l CT scans at this location are performed using CT dose reduction for ALARA by means of automated exp osure control. COMPARISON: None available. FINDINGS: HEART: No significant abnormality. CORONARY ARTERY CALCIFICATION: None. THORACIC AORTA: No significant abnormality. MEDIASTINUM / RIKKI: No significant abnormality. PLEURA: No pleural effusion. No pneumothorax. LUNGS: There is a 6 mm noncalcified nodule in the left lower lobe on series 6 image 40 the remainder of the lungs is clear aside from mild bibasilar atelectasis. ADDITIONAL CHEST FINDINGS: 4.6 x 3.0 cm mass in the lateral right breast with overlying skin thickeni ng. There are multiple enlarged level 1 and 2 lymph axillary nodes. Left chest port catheter tip term inates in the right atrium LIVER: There are numerous metastatic lesions throughout the liver. The largest is in the lateral segm ent of the left hepatic lobe measuring 3.8 x 3.5 cm. GALLBLADDER: No significant abnormality. BILE DUCTS: No significant abnormality. PANCREAS: There is a 1.4 x 0.6 cm cystic lesion in the mid pancreatic body. No pancreatic ductal dila tion. SPLEEN: No significant abnormality. ADRENALS: No significant abnormality. RIGHT KIDNEY / URETER: Multiple simple cyst in the right kidney. No hydronephrosis. LEFT KIDNEY / URETER: No significant abnormality. STOMACH and SMALL BOWEL: Small hiatal hernia. COLON: No significant abnormality. APPENDIX: Not identified PERITONEUM: No free fluid. No free air. No fluid collection. LYMPH NODES: No significant adenopathy. AORTA / ARTERIES: No significant abnormality. IVC / VEINS: No significant abnormality. URINARY BLADDER: No significant abnormality. REPRODUCTIVE ORGANS: Uterus is absent. No significant adnexal abnormality. ADDITIONAL FINDINGS: None. SKELETAL SYSTEM: Mild anterolisthesis of L5 on S1. Patchy sclerotic lesion in the superior T12 verteb ral body without cortical destruction. IMPRESSION: 1. Right breast mass and right axillary adenopathy as above consistent with history of breast maligna ncy. 2. Hepatic metastatic disease. 3. Isolated noncalcified nodule in the left lower lobe, technically indeterminate. 4. Patchy sclerotic lesion in the T12 vertebral body is indeterminate and may represent osseous metas tasis. 5. Incidental cystic lesion in the pancreatic body is too small to characterize but possibly represen ts pancreatic cysts versus side branch IPMN. Signer Name: Thiago Mohr MD Signed: 12/19/2020 2:01 PM Workstation Name: [id number]
== END 2020-12-19 10:46 | disposition home or self-care (01) ==
LOC: CT 10:45
PROVIDERS: ATTEND Surgery
DX: C50.411 Malignant neoplasm of upper-outer quadrant of right female breast (principal); C50.811 Malignant neoplasm of overlapping sites of right female breast; C78.7 Secondary malignant neoplasm of liver and intrahepatic bile duct; R91.1 Solitary pulmonary nodule; J98.11 Atelectasis; K76.89 Other specified diseases of liver; N28.1 Cyst of kidney, acquired; K86.89 Other specified diseases of pancreas; K44.9 Diaphragmatic hernia without obstruction or gangrene; M43.17 Spondylolisthesis, lumbosacral region; M53.84 Other specified dorsopathies, thoracic region; R59.0 Localized enlarged lymph nodes; N63.10 Unspecified lump in the right breast, unspecified quadrant
CPT/HCPCS: 36415; 71260; 74177; 82565; 84520; Q9967

== ENCOUNTER 2020-12-29 11:50 | Outpatient (CLI) | payer MEDICARE | END 2020-12-29 11:51 | disposition home or self-care (01) | LOC: LAB 11:50 | PROVIDERS: ATTEND Surgery | DX: L98.9 Disorder of the skin and subcutaneous tissue, unspecified (principal); C50.411 Malignant neoplasm of upper-outer quadrant of right female breast | CPT/HCPCS: 88305; 88341; 88342 ==

== ENCOUNTER 2021-02-20 00:18 | Emergency (ER) | payer MEDICARE ==
[2021-02-20 04:42] LABS: Basophils # (Auto) 0.1 K/mm3 (0.0-0.1); Basophils % (Auto) 0.8 % (0.0-1.8); Eosinophils % (Auto) 0.2 % (0.0-4.3); Hematocrit 27.6 % (30.3-42.9); Lymphocytes # (Auto) 1.3 K/mm3 (1.2-5.4); Mean Corpuscular HGB Conc 33 % (30-34); Mean Corpuscular Volume 75 fl (79-97); Monocytes # (Auto) 0.8 K/mm3 (0.0-0.8); Monocytes % (Auto) 6.8 % (0.0-7.3); Platelet Count 600 K/mm3 (140-440); Red Blood Count 3.66 M/mm3 (3.65-5.03); Red Cell Distribution Width 15.2 % (13.2-15.2)
[2021-02-20 04:57] LABS: Alanine Aminotransferase 47 units/L (7-56); Albumin 3.1 g/dL (3.9-5); Blood Urea Nitrogen 11 mg/dL (7-17); Calcium 8.3 mg/dL (8.4-10.2); Hemolysis Index 1
[2021-02-20 05:15] LABS: BUN/Creatinine Ratio 18
[2021-02-20] MEDS ORDERED: ONDANSETRON 4 MG/2 ML INJ IV ONE (07:12)
[2021-02-20] MEDS ORDERED: SODIUM CHLORIDE 0.9% 1000 ML 1,000 ML IV ONE ×2 (07:12→13:23)
--- NOTE | 2021-02-20 07:19 | Emergency Department Report ---
ED Abdominal Pain HPI - General Chief Complaint: Abdominal Pain Stated Complaint: CONSTIPATION Time Seen by Provider: 02/20/21 07:12 Source: patient, EMS Mode of arrival: Wheelchair Limitations: No Limitations - History of Present Illness Initial Comments: Patient is 65 years old female with a recent diagnosis of breast cancer with metastasis. Patient recently finished chemotherapy. Patient presented to the ER complaining of diffuse abdominal pain and constipation for the last 3 days. Patient stated that she is only able to pass a small amount of stool. Patient stated that she is nauseated but no vomiting. Patient denied any fever or chills. No chest pain or shortness of breath. MD Complaint: abdominal pain -: days(s) (3) Location: diffuse Migration to: no migration Associated Symptoms: nausea, constipation - Related Data Home Medications Medication Instructions Recorded Confirmed Last Taken Aspirin [Aspirin BABY CHEW TAB] 81 mg PO DAILY 09/29/18 02/06/21 09/29/18 Previous Rx's Medication Instructions Recorded Last Taken Type Famotidine [Pepcid] 20 mg PO BID #60 tablet 02/08/21 Unknown Rx Ferrous Sulfate [Feosol 325 MG tab] 325 mg PO QDAY #30 tablet 02/08/21 Unknown Rx Fluconazole [Diflucan TAB] 100 mg PO QDAY #3 tablet 02/08/21 Unknown Rx Multivitamin Tab [Multiple Vitamin 1 each PO QDAY #30 tablet 02/08/21 Unknown Rx TAB (Theragran)] Sennosides Tab [Senokot] 8.6 mg PO Q12HR PRN #14 tablet 02/08/21 Unknown Rx Zolpidem [Ambien] 5 mg PO QHS PRN #14 tablet 02/08/21 Unknown Rx levoFLOXacin [Levaquin] 750 mg PO QDAY #5 tablet 02/08/21 Unknown Rx Allergies Allergy/AdvReac Type Severity Reaction Status Date / Time No Known Allergies Allergy Verified 02/20/21 00:28 ED Review of Systems ROS: Stated complaint: CONSTIPATION Other details as noted in HPI Comment: All other systems reviewed and negative Constitutional: denies: chills, fever ENT: denies: ear pain, dental pain Cardiovascular: denies: chest pain Gastrointestinal: abdominal pain, nausea, constipation. denies: vomiting, diarrhea, hematemesis, melena, hematochezia Musculoskeletal: denies: back pain Neurological: denies: headache, weakness, numbness, paresthesias, confusion ED Past Medical Hx - Past Medical History Hx Deep Vein Thrombosis: Yes Hx of Cancer: Yes (breast) Additional medical history: DVT, Pneumonia - Surgical History Hx Appendectomy: Yes Additional Surgical History: tonsilectomy/ Fibroids - Social History Smoking Status: Never Smoker Substance Use Type: Alcohol - Medications Home Medications: Home Medications Medication Instructions Recorded Confirmed Last Taken Type Aspirin [Aspirin BABY CHEW TAB] 81 mg PO DAILY 09/29/18 02/06/21 09/29/18 History Famotidine [Pepcid] 20 mg PO BID #60 tablet 02/08/21 Unknown Rx Ferrous Sulfate [Feosol 325 MG tab] 325 mg PO QDAY #30 tablet 02/08/21 Unknown Rx Fluconazole [Diflucan TAB] 100 mg PO QDAY #3 tablet 02/08/21 Unknown Rx Multivitamin Tab [Multiple Vitamin 1 each PO QDAY #30 tablet 02/08/21 Unknown Rx TAB (Theragran)] Sennosides Tab [Senokot] 8.6 mg PO Q12HR PRN #14 tablet 02/08/21 Unknown Rx Zolpidem [Ambien] 5 mg PO QHS PRN #14 tablet 02/08/21 Unknown Rx levoFLOXacin [Levaquin] 750 mg PO QDAY #5 tablet 02/08/21 Unknown Rx ED Physical Exam - General Limitations: No Limitations General appearance: alert, in no apparent distress, anxious - Head Head exam: Present: atraumatic, normocephalic, normal inspection - Eye Eye exam: Present: normal appearance - ENT ENT exam: Present: mucous membranes dry - Neck Neck exam: Present: normal inspection, full ROM. Absent: tenderness, meningismus - Respiratory Respiratory exam: Present: normal lung sounds bilaterally - Cardiovascular Cardiovascular Exam: Present: tachycardia - GI/Abdominal GI/Abdominal exam: Present: soft, normal bowel sounds. Absent: distended, tenderness, guarding, rebound, rigid, organomegaly, mass, bruit, pulsatile mass, hernia - Extremities Exam Extremities exam: Present: normal inspection, full ROM, normal capillary refill. Absent: pedal edema, calf tenderness - Back Exam Back exam: Present: normal inspection, full ROM. Absent: CVA tenderness (R), CVA tenderness (L) - Neurological Exam Neurological exam: Present: alert, oriented X3, CN II-XII intact, reflexes normal - Psychiatric Psychiatric exam: Present: anxious. Absent: homicidal ideation, suicidal ideation - Skin Skin exam: Present: warm, dry, intact ED Course Vital Signs 02/20/21 00:33 Temperature 98.4 F Pulse Rate 124 H Respiratory 18 Rate Blood Pressure 161/75 [Left] O2 Sat by Pulse 100 Oximetry ED Medical Decision Making - Lab Data Result diagrams: 02/20/21 04:12 02/20/21 13:43 - Radiology Data Radiology results: report reviewed - Medical Decision Making Patient is 65 years old female with a recent diagnosis of breast cancer with metastasis. Patient recently finished chemotherapy. Patient presented to the ER complaining of diffuse abdominal pain and constipation for the last 3 days. Patient stated that she is only able to pass a small amount of stool. Patient stated that she is nauseated but no vomiting. Patient denied any fever or chills. No chest pain or shortness of breath. Patient received normal saline and Zofran. Labs reviewed and showed a potassium of 2.8. Patient received potassium IV and p.o. Current potassium is 3.5. CT abdomen and pelvis showed no changes since her last study. Patient main complaint is constipation. Patient given prescription for lactulose and Colace and advised to follow-up with her primary care physician in the next 2 to 3 days and to return to the ER if she develop any new symptoms. Critical care attestation.: If time is entered above; I have spent that time in minutes in the direct care of this critically ill patient, excluding procedure time. ED Disposition Clinical Impression: Acute abdominal pain, Acute hypokalemia, Constipation Disposition: HOME / SELF CARE / HOMELESS Is pt being admited?: No Condition: Stable Instructions: Abdominal Pain (ED), Hypokalemia, Constipation, Adult Referrals: PRIMARY CARE, [Primary Care Provider] - 3-5 Days
--- NOTE | 2021-02-20 09:28 | Cat Scan Report ---
CT ABDOMEN AND PELVIS WITH CONTRAST INDICATION / CLINICAL INFORMATION: abdominal pain OMNI 300 100 ML. TECHNIQUE: Axial CT images were obtained through the abdomen and pelvis after 100 cc Omnipaque 300 IV contrast. Sagittal and coronal reformatted images. All CT scans at this location are performed using CT dose re duction for ALARA by means of automated exposure control. COMPARISON: 02/05/2021 FINDINGS: LOWER CHEST: Few scattered tiny pulmonary nodules at both lung bases appear stable. No infiltrate or effusion. Heart size is normal. Large heterogeneous mass in the right lateral breast is partially karen ged measuring 6.9 x 4.4 cm which appears grossly unchanged. LIVER: Innumerable hypodense liver masses are again seen consistent with diffuse hepatic metastasis. There is moderate hepatomegaly. GALLBLADDER: No significant abnormality. BILE DUCTS: No significant abnormality. PANCREAS: No significant abnormality. SPLEEN: No significant abnormality. ADRENALS: No significant abnormality. RIGHT KIDNEY and URETER: Stable cysts at the inferior pole measuring up to 3.5 cm. LEFT KIDNEY and URETER: Stable 1 cm cyst near mid pole. STOMACH and SMALL BOWEL: No significant abnormality. COLON: No significant abnormality. APPENDIX: Not confidently identified. PERITONEUM: No free fluid. No free air. No fluid collection. LYMPH NODES: No significant adenopathy. AORTA and ARTERIES: No significant abnormality. IVC and VEINS: No significant abnormality. URINARY BLADDER: No significant abnormality. REPRODUCTIVE ORGANS: Stable hysterectomy changes. No adnexal abnormality. ADDITIONAL FINDINGS: None. SKELETAL SYSTEM: Stable lumbar spondylosis with grade 1 anterolisthesis of L5 with respect to the sac rum. No convincing bony lesions. IMPRESSION: No acute process is appreciated in the abdomen or pelvis. No significant change since 02/05/2021. Sta ble hepatomegaly with diffuse metastasis. Stable scattered pulmonary nodules at both lung bases. No n ew areas of disease are appreciated. Signer Name: Thomas Emanuel Jr, MD Signed: 02/20/2021 9:24 AM Workstation Name: [id number]
[2021-02-20] MEDS ORDERED: POTASSIUM CHLORIDE ER 20 MEQ TAB PO ONE ×2 (10:44→14:00)
[2021-02-20 10:54] LABS: Bilirubin,Urine NEG (Negative); Blood,Urine SM (Negative); Color,Urine Yellow (Yellow); Mucus,Urine FEW /HPF
[2021-02-20] MEDS: POTASSIUM CHLORIDE 10 MEQ 10 MEQ/100 ML BAG IV SCH ×2 (12:25→14:05)
[2021-02-20] MEDS ORDERED: POTASSIUM CHLORIDE 10 MEQ 10 MEQ/100 ML BAG IV ONE (14:00)
[2021-02-21 05:55] VITALS: BP 146/79
== END 2021-02-21 03:23 | disposition home or self-care (01) ==
LOC: ED 00:18
DX: R10.0 Acute abdomen (principal); E87.6 Hypokalemia; K59.00 Constipation, unspecified; C50.919 Malignant neoplasm of unspecified site of unspecified female breast; C79.9 Secondary malignant neoplasm of unspecified site; Z85.3 Personal history of malignant neoplasm of breast; Z90.89 Acquired absence of other organs; F10.20 Alcohol dependence, uncomplicated
CPT/HCPCS: 36415; 74177; 80053; 81001; 83690; 84132; 85025; 96361; 96365; 96366; 96375; 99284; J2405; J3480; J7030; Q9967

== ENCOUNTER 2021-03-16 09:09 | Outpatient (CLI) | payer MEDICARE | END 2021-03-16 09:10 | disposition home or self-care (01) | LOC: LABHHL 09:09 | PROVIDERS: ATTEND Internal Medicine Hematology & Oncology | DX: C50.411 Malignant neoplasm of upper-outer quadrant of right female breast (principal); E86.0 Dehydration | CPT/HCPCS: 88341 ==